=== PATIENT | female | born 1975 | race African-American/Black ===

== ENCOUNTER 2017-04-07 21:45 | Emergency (ER) | payer OTHER ==
[~2017-04-07] VITALS: Ht 160 cm; Wt 104.3 kg
[2017-04-07 22:00] VITALS: BP 114/75
[2017-04-07] MEDS ORDERED: Bacitracin Oint UD TOPIC ONE (22:15)
[2017-04-07] MEDS ORDERED: BACTRIM DS TAB1 EAC1 ORAL (22:38)
[2017-04-07] MEDS ORDERED: MUPIROCIN22 GM TOPIC (22:38)
--- NOTE | 2017-04-07 22:38 | Emergency Room Report ---
History of Present Illness General Chief Complaint: Pain Source: Patient Present Illness HPI Is a 42-year-old female who is left-hand dominant. She presents with swelling and pain to her right pinky finger. Onset today. Yesterday she noticed a small hangnail and she bit it. Tender to palpation. Localized to the radial aspect of the nail. I'll swelling but no drainage. No fever chills but no nausea vomiting. Allergies: Coded Allergies: No Known Allergies (Unverified , 04/07/17) Patient History Past Medical History: see triage record, old chart reviewed Past Surgical History: none Pertinent Family History: none Social History: Denies: smoking Last Menstrual Period: 03/30/17 Now: No : 4 Para: 3 Immunizations: other Reviewed Nursing Documentation: PMH: Agreed, PSxH: Agreed Nursing Documentation-PMH Past Medical History: No Stated History Review of Systems Eye: Denies: eye pain, blurred vision ENT: Denies: ear pain, nose congestion, throat swelling Respiratory: Denies: cough, shortness of breath Cardiovascular: Denies: chest pain, palpitations Gastrointestinal: Denies: abdominal pain, diarrhea, nausea, vomiting Musculoskeletal: Denies: back pain, joint pain Skin: Denies: rash Neurological: Denies: headache, numbness Endocrine: Denies: increased thirst, increased urine Hematologic/Lymphatic: Denies: easy bruising All Other Systems: negative except mentioned in HPI Physical Exam Vital Signs Date Time Temp Pulse Resp B/P (MAP) Pulse Ox O2 Delivery O2 Flow Rate FiO2 04/07/17 21:55 98.1 77 15 114/75 97 Room Air vitals normal Sp02 EP Interpretation: reviewed, normal General Appearance: well appearing, no apparent distress, alert Head: normocephalic, atraumatic Eyes: bilateral eye PERRL, bilateral eye EOMI ENT: hearing grossly normal, normal pharynx Neck: full range of motion, supple, no meningismus Respiratory: chest non-tender, lungs clear, normal breath sounds Cardiovascular #1: regular rate, rhythm, no murmur Gastrointestinal: normal bowel sounds, non tender, no mass, no organomegaly, no bruit, non-distended Musculoskeletal: back normal, gait/station normal, normal range of motion, other - Right finger: On the radial Aspect of the nail, there is some irritation and Edema. No abscess that can be I&D. Psychiatric: mood/affect normal Skin: warm/dry Medical Decision Making Diagnostic Impression: Primary Impression: Paronychia of finger of right hand ER Course Patient with a small paronychia. Too early to be I&D. We'll treat symptomatically with antibiotic ointment. We'll also write for antibiotics. no Evidence of felon. Last Vital Signs Date Time Temp Pulse Resp B/P (MAP) Pulse Ox O2 Delivery O2 Flow Rate FiO2 04/07/17 22:00 98.1 77 15 114/75 97 Room Air Status: improved Disposition: HOME, SELF-CARE Condition: Stable Scripts Mupirocin* (MUPIROCIN*) 22 Gm Oint...g. 1 APPLIC TOPIC THREE TIMES A DAY, #22 GM Prov: LILLIAM XIE M.D. 04/07/17 Trimethoprim/Sulfamethoxazole 160/800* (BACTRIM DS TABLET*) 1 Each Tablet 1 TAB ORAL Q12H, #14 TAB 0 Refills Prov: LILLIAM XIE M.D. 04/07/17 Additional Instructions: Keep wound clean. Use antibiotic at first. If not better in 2-3 days, fill prescription. LILLIAM XIE M.D. Apr 07, 2017 22:38
[2017-04-07 22:46] VITALS: BP 114/75
== END 2017-04-07 22:46 | disposition home or self-care (01) ==
LOC: EMR 22:10
DX: L03.011 Cellulitis of right finger (principal)
CPT/HCPCS: 99283

== ENCOUNTER 2018-04-11 06:22 | Emergency (ER) | payer OTHER ==
[~2018-04-11] VITALS: Ht 160 cm; Wt 102.5 kg
[~2018-04-11 06:22] MED LIST: BACTRIM DS TAB1 EAC1 ORAL; MUPIROCIN22 GM TOPIC
[2018-04-11 06:38] VITALS: BP_SYST 113; BP_SYST 99; BP_DIAS 67; BP_DIAS 78
--- NOTE | 2018-04-11 06:41 | NUR ---
ED Nurse Note: pt came to ed from home c/o sore throat 10/, cough, flu like symptoms x1 day. per pt she hasnt taken medication to help with symptoms
[2018-04-11] MEDS ORDERED: IBUPROFEN600 MG ORAL (06:53)
[2018-04-11] MEDS ORDERED: AUGMENTIN 875-1 EAC1 ORAL (06:53)
[2018-04-11 06:57] VITALS: BP 113/78
--- NOTE | 2018-04-11 06:57 | NUR ---
ED Nurse Note: pt dc per ermd order, pt is aox4, pt was given dc and prscription insctrutions, pt was able to verbalize understasnding, id band removed, pt is able to ambulate with steady gait, pt took all belongings when leaving ED.
--- NOTE | 2018-04-11 09:47 | Emergency Room Report ---
History of Present Illness General Chief Complaint: Flu Like Symptoms Source: Patient Present Illness HPI Patient presents with complaints of sore throat ear pain Bodyaches ongoing for the past several days Denies any chest pain or short of breath denies any vomiting or diarrhea Symptoms have worsened over the night and presents to the ER Denies any neck pain or photophobia denies any recent travel Sore throat is 5 out of 10 worse with swallowing Allergies: Coded Allergies: No Known Allergies (Unverified , 04/07/17) Patient History Past Medical History: see triage record Pertinent Family History: none Last Menstrual Period: 03/20/18 Now: No Reviewed Nursing Documentation: PMH: Agreed; PSxH: Agreed Nursing Documentation-PMH Past Medical History: No Stated History Review of Systems All Other Systems: negative except mentioned in HPI Physical Exam Vital Signs Date Time Temp Pulse Resp B/P (MAP) Pulse Ox O2 Delivery O2 Flow Rate FiO2 04/11/18 06:33 98.2 72 16 113/78 100 Room Air Sp02 EP Interpretation: reviewed, normal General Appearance: well appearing, no apparent distress Head: normocephalic, atraumatic Eyes: bilateral eye PERRL, bilateral eye EOMI ENT: hearing grossly normal, TMs + canals normal, uvula midline, pharyngeal erythema Neck: full range of motion, supple, no meningismus, no bony tend Respiratory: lungs clear, normal breath sounds, no rhonchi, no respiratory distress, no retraction, no accessory muscle use Cardiovascular #1: normal peripheral pulses, regular rate, rhythm, no edema, no gallop, no JVD, no murmur Gastrointestinal: normal bowel sounds, non tender, soft, no mass, no organomegaly, non-distended, no guarding, no hernia, no pulsatile mass, no rebound Genitourinary: no CVA tenderness Musculoskeletal: normal inspection Neurologic: oriented x3, responsive, flow coordinator III-XII nml as tested, motor strength/ tone normal, sensory intact Psychiatric: mood/affect normal Skin: normal color, no rash, warm/dry, palpation normal Lymphatic: normal inspection, no adenopathy Medical Decision Making Diagnostic Impression: Primary Impression: pharyngitis ER Course Patient's clinical history exam and findings are consistent with pharyngitis No findings to suggest peritonsillar or retropharyngeal abscess Patient will have initial conservative outpatient trial and return with any changes Last Vital Signs Date Time Temp Pulse Resp B/P (MAP) Pulse Ox O2 Delivery O2 Flow Rate FiO2 04/11/18 06:57 98.2 72 16 113/78 100 Room Air Status: unchanged Disposition: HOME, SELF-CARE Condition: Stable Scripts Amoxicillin/Potassium Clav 875-125* (AUGMENTIN 875-125 TABLET*) 1 Each Tablet 1 TAB ORAL TWICE A DAY, #14 TAB Prov: Chris Nichols DO 04/11/18 Ibuprofen* (MOTRIN*) 600 Mg Tablet 600 MG ORAL Q8H PRN for For Pain, #20 TAB 0 Refills Prov: Chris Nichols DO 04/11/18 Referrals: NON PHYSICIAN (PCP) Patient Instructions: Pharyngitis, [id number] Additional Instructions: Patient is provided with the discharge instructions notified to follow up with primary doctor in the next 2-3 days otherwise return to the er with any worsening symptoms. Please note that this report is being documented using shout[employer]ON technology. This can lead to erroneous entry secondary to incorrect interpretation by the dictating instrument. Chris Nichols DO Apr 11, 2018 09:47
== END 2018-04-11 07:00 | disposition home or self-care (01) ==
LOC: EMR 06:55
DX: J02.9 Acute pharyngitis, unspecified (principal)
CPT/HCPCS: 99282

== ENCOUNTER 2018-09-03 18:45 | Emergency (ER) | payer OTHER ==
[~2018-09-03] VITALS: Ht 160 cm; Wt 104.3 kg
[~2018-09-03 18:45] MED LIST changes: +AUGMENTIN 875-1 EAC1 ORAL; +IBUPROFEN600 MG ORAL
[2018-09-03] MEDS ORDERED: NAPROXEN500 M2 ORAL (20:17)
[2018-09-03] MEDS ORDERED: ACETAMINOPHEN-1 EAC1 ORAL (20:17)
--- NOTE | 2018-09-03 20:17 | Emergency Room Report ---
History of Present Illness General Chief Complaint: Lower Extremity Injury Source: Patient (Abril Francisco) Present Illness HPI 43-year-old female presents to the emergency department complaining of 9 out of 10 severity right knee pain with acute onset yesterday after hearing a loud pop noise when attempting to sit down onto the toilet. 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 Patient reports previous meniscal problems in the left knee which eventually required surgical interventions. Patient states that with attempts to bear weight she feels as though her leg is going to give out from underneath her. Denies erythema, warmth or bruising. Patient reports feeling sensation of swelling in her knee. No other Aggravating or relieving factors at this time. Denies numbness tingling or loss of sensation or gross motor movements of the extremities, incontinence of bowel or bladder. Denies CP, Palpitations, LOC, AMS , dizziness, Changes in Vision, weakness or a sudden severe headache. (Abril Francisco) Allergies: Coded Allergies: No Known Allergies (Unverified , 04/07/17) Patient History Past Medical History: see triage record Past Surgical History: none Pertinent Family History: none Last Menstrual Period: 08/29/18 Now: No Reviewed Nursing Documentation: PMH: Agreed; PSxH: Agreed (Abril Francisco) Nursing Documentation-PMH Past Medical History: No Stated History (Abril Francisco) Review of Systems All Other Systems: negative except mentioned in HPI (Abril Francisco) Physical Exam Vital Signs Date Time Temp Pulse Resp B/P (MAP) Pulse Ox O2 Delivery O2 Flow Rate FiO2 09/03/18 18:52 98.1 76 18 139/90 (106) 97 Room Air Sp02 EP Interpretation: reviewed, normal General Appearance: no apparent distress, alert, GCS 15, non-toxic, obese Head: normocephalic, atraumatic Eyes: bilateral eye normal inspection, bilateral eye PERRL ENT: hearing grossly normal, normal voice Neck: full range of motion Respiratory: chest non-tender, lungs clear, normal breath sounds, speaking full sentences Cardiovascular #1: regular rate, rhythm, normal capillary refill Cardiovascular #2: 3+ dorsalis pedis (R) - post. tib. Gastrointestinal: normal bowel sounds, non tender, soft Musculoskeletal: back normal, gait/station normal - compensatory, normal range of motion, other - No increased laxity upon varus or valgus stressing of the right knee, negative anterior and posterior drawer signs. TTP anteriorly, no swelling. Pain when pt. bears weight. Neurologic: alert, oriented x3, responsive, motor strength/tone normal, sensory intact, speech normal, grossly normal Psychiatric: judgement/insight normal Skin: normal color (Abril Francisco) Medical Decision Making PA Attestation Dr. Jang is my supervising Physician whom patient management has been discussed with. (Abril Francisco) Diagnostic Impression: Primary Impression: Knee pain, acute Qualified Codes: M25.561 - Pain in right knee ER Course 43-year-old female presents to the emergency department complaining of 9 out of 10 severity right knee pain with acute onset yesterday after hearing a loud pop noise when attempting to sit down onto the toilet. 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 Patient reports previous meniscal problems in the left knee which eventually required surgical interventions. Patient states that with attempts to bear weight she feels as though her leg is going to give out from underneath her. Denies erythema, warmth or bruising. Patient reports feeling sensation of swelling in her knee. No other Aggravating or relieving factors at this time. Denies numbness tingling or loss of sensation or gross motor movements of the extremities, incontinence of bowel or bladder. Denies CP, Palpitations, LOC, AMS , dizziness, Changes in Vision, weakness or a sudden severe headache. Ddx considered but are not limited to Fracture, dislocation, contusion, Sprain/ Strain/Spasm, meniscal injury, Septic Joint, or Arthritis just to name a few Vital signs: are WNL, pt. is afebrile H&PE are most consistent with musculoskeletal injury will perform imaging to r/ o fractures/dislocations.- No increased laxity on exam. ORDERS: - X-ray Right Knee 3 views - negative for fx, Dislocation, or significant soft tissue injury, per preliminary read in ED, and signed by DAVY Francisco , my supervising physician has reviewed, and agrees with my interpretation. ED INTERVENTIONS: --Knee Immobilizer splint applied to the Right Knee by [employer]fd[employer] technical architect. Pt. remains neurovascularly intact. --Patient is provided with crutches and instructed on their use DISCHARGE: At this time pt. is stable for d/c to home. Will provide printed patient care instructions, and any necessary prescriptions. Care plan and follow up instructions have been discussed with the patient prior to discharge. (Abril Francisco) Other X-Ray Diagnostic Results Other X-Ray Diagnostic Results : X-Ray ordered: Right Knee # of Views/Limited Vs Complete: 3 View Indication: Pain EP Interpretation: Yes PA Xray: Interpretation reviewed, by supervising MD, and agrees with findings. Interpretation: no dislocation, no soft tissue swelling, no fractures Impression: No acute disease Electronically Signed by: Abril Francisco PA-C (Abril Francisco) Other X-Ray Diagnostic Results : Electronically Signed by: Josie Kaur documentation of Xray reviewed by me and is accurate, George Jang MD (George Jang MD) Last Vital Signs Date Time Temp Pulse Resp B/P (MAP) Pulse Ox O2 Delivery O2 Flow Rate FiO2 09/03/18 18:52 98.1 76 18 139/90 (106) 97 Room Air (Abril Francisco) Disposition: HOME, SELF-CARE Condition: Stable Scripts Naproxen* (NAPROXEN*) 500 Mg Tablet 500 MG ORAL TWICE A DAY, #14 TAB Prov: Abril Francisco 09/03/18 Acetaminophen With Codeine (T#3) (TYLENOL #3 TAB*) Y Tab 1 TAB ORAL Q6HR PRN for For Pain, #5 TAB Prov: Abril Francisco 09/03/18 Patient Instructions: Knee Pain Additional Instructions: Take medications as directed. Follow up with an [facility] in 3-5 days, even if your symptoms have resolved. If symptoms persist MRI may be required at the discretion of your PCP or Ortho Specialist. --Please review list of primary care clinics, if you do not already have a primary care provider who can give you an Orthopedic Referral. Return sooner to ED if new symptoms occur, or current symptoms become worse. Do not drink alcohol, drive, or operate heavy machinery while taking Tylenol # 3 as this may cause drowsiness. - Please note that this Emergency Department Report was dictated using [employer] painter technology software, occasionally this can lead to erroneous entry secondary to interpretation by the dictation equipment. Abril Francisco Sep 03, 2018 20:17 George Jang MD Sep 04, 2018 05:41
[2018-09-03 20:27] VITALS: BP 130/82
--- NOTE | 2018-09-04 12:48 | Diagnostic Imaging Report ---
Indication: Pain Knee pain/trauma 3 views of the right knee were obtained. Findings: There is evidence of a small corticated ossicle adjacent to the medial tibial spine on the frontal projection of the knee. The ossific focus is not appreciated well on the other views. This may reflect an old injury of the medial tibial spine, degenerative osteophyte formation or possibly a small loose body. Consider further evaluation with MRI for better assessment. There is no acute fracture identified. There is no malalignment or obvious joint effusion. IMPRESSION: Small central ossicle noted. Consider evaluation with MRI. Discussion as above
== END 2018-09-03 22:25 | disposition home or self-care (01) ==
LOC: EMR 20:30
DX: M25.561 Pain in right knee (principal); E66.9 Obesity, unspecified
CPT/HCPCS: 29505; 99283

== ENCOUNTER 2018-10-04 13:39 | Emergency (ER) | payer OTHER ==
[~2018-10-04] VITALS: Ht 160 cm; Wt 107.0 kg
[~2018-10-04 13:39] MED LIST changes: +ACETAMINOPHEN-1 EAC1 ORAL; +NAPROXEN500 M2 ORAL
[2018-10-04] MEDS ORDERED: NKM (13:46)
--- NOTE | 2018-10-04 13:52 | NUR ---
ED Nurse Note: Pt frokm home came in due to right thumb swelling after needle puncture last sunday. Unable ot recall if she had Tetanus Shor before. AAO x4, ambulatory. Noted right thumb swelling with betadine.
[2018-10-04] MEDS ORDERED: Tetanus/Diptheria/Pertussis IM ONE (14:00)
--- NOTE | 2018-10-04 14:36 | Emergency Room Report ---
History of Present Illness General Chief Complaint: Upper Extremity Injury Source: Patient Present Illness HPI 43-year-old female presents to the emergency department complaining of 7 out of 10 severity localized pain underneath the distal aspect of the nail of the right thumb x3 days status post accidentally poking herself with sewing needle. Patient denies bleeding at this time she reports progressive swelling in the distal aspect of her right thumb. Patient states she is right-hand dominant she is not sure when her last tetanus vaccination was. Patient denies taking blood thinning medications or having history of immune compromise. Patient denies taking any fceq-ktc-[id number] medications to relieve her symptoms. Patient denies fevers, chills or seizures. Patient reports acute onset of discharge from under the nail starting this morning. No other aggravating or relieving factors at this time. Allergies: Coded Allergies: No Known Allergies (Unverified , 04/07/17) Patient History Past Medical History: see triage record Past Surgical History: none Pertinent Family History: none Last Menstrual Period: 09/30/18 Now: No Reviewed Nursing Documentation: PMH: Agreed; PSxH: Agreed Nursing Documentation-PMH Past Medical History: No Stated History Review of Systems All Other Systems: negative except mentioned in HPI Physical Exam Vital Signs Date Time Temp Pulse Resp B/P (MAP) Pulse Ox O2 Delivery O2 Flow Rate FiO2 10/04/18 13:42 98.1 70 16 118/73 (88) 98 Room Air Sp02 EP Interpretation: reviewed, normal General Appearance: no apparent distress, alert, GCS 15, non-toxic Head: normocephalic, atraumatic Eyes: bilateral eye normal inspection, bilateral eye PERRL ENT: hearing grossly normal, normal voice Neck: full range of motion Respiratory: lungs clear, normal breath sounds, speaking full sentences Cardiovascular #1: regular rate, rhythm, normal capillary refill Musculoskeletal: back normal, gait/station normal, normal range of motion, non- tender Neurologic: alert, oriented x3, responsive, motor strength/tone normal, sensory intact, speech normal, grossly normal Psychiatric: judgement/insight normal Skin: other - erythema to the tip of the distal tip of the right thumb with small area of oncholysis of the distal nail in a linear fashion, no palpable fluctuance, no swelling or fluctuance of the nail fold or cuticle line. FROM, no ttp to the finger pad, no swelling or erythema of the finger pad, no bleeding at this time. Medical Decision Making PA Attestation Dr. Padilla is my supervising Physician whom patient management has been discussed with. Diagnostic Impression: Primary Impression: Cellulitis, finger Qualified Codes: L03.011 - Cellulitis of right finger Additional Impression: Puncture wound ER Course 43-year-old female presents to the emergency department complaining of 7 out of 10 severity localized pain underneath the distal aspect of the nail of the right thumb x3 days status post accidentally poking herself with sewing needle. Patient denies bleeding at this time she reports progressive swelling in the distal aspect of her right thumb. Patient states she is right-hand dominant she is not sure when her last tetanus vaccination was. Patient denies taking blood thinning medications or having history of immune compromise. Patient denies taking any upky-lhn-bajbxni medications to relieve her symptoms. Patient denies fevers, chills or seizures. Patient reports acute onset of discharge from under the nail starting this morning. No other aggravating or relieving factors at this time. Ddx considered but are not limited to cellulitis, paronychia, eponychia, ingrown toe nail, fracture, d/L, gout Vital signs: are WNL, pt. is afebrile H&PE are most consistent with Right Middle finger nail infection/ cellulitis- no fluctuance----- erythema to the tip of the distal tip of the right thumb with small area of oncholysis of the distal nail in a linear fashion, no palpable fluctuance, no swelling or fluctuance of the nail fold or cuticle line. FROM, no ttp to the finger pad, no swelling or erythema of the finger pad , no bleeding at this time. ORDERS: none required at this time, the diagnosis is clinical ED INTERVENTIONS: -Tdap vaccination administered. - will d/c pt. with PO abx. -I do not identify an emergent condition at this time. With current presentation , pt. is stable for close outpatient follow up and conservative treatment. D/ w pt. to return promptly to ED with worsening or new symptoms.- Pt. verbalizes' understanding and agreement with proposed treatment plan.proposed treatment plan. DISCHARGE: At this time pt. is stable for d/c to home. Will provide printed patient care instructions, and any necessary prescriptions. Care plan and follow up instructions have been discussed with the patient prior to discharge. Last Vital Signs Date Time Temp Pulse Resp B/P (MAP) Pulse Ox O2 Delivery O2 Flow Rate FiO2 10/04/18 13:42 98.1 70 16 118/73 (88) 98 Room Air Disposition: HOME, SELF-CARE Condition: Stable Scripts Mupirocin* (MUPIROCIN*) 22 Gm Oint...g. 1 APPLIC TOPIC THREE TIMES A DAY, #22 GM Prov: Abril Francisco 10/04/18 Ibuprofen* (MOTRIN*) 600 Mg Tablet 600 MG ORAL THREE TIMES A DAY, #30 TAB 0 Refills Prov: Abril Francisco 10/04/18 Clindamycin Hcl (CLINDAMYCIN HCL) 300 Mg Capsule 300 MG ORAL FOUR TIMES A DAY for 7 Days, #28 CAP Prov: Abril Francisco 10/04/18 Patient Instructions: Cellulitis, Kzlw-es-Peyq, Paronychia, [id number] Additional Instructions: Take medications as directed. --Warm water soaks up to 8x a day. Follow up with a Primary Care Provider in 3-5 days, even if your symptoms have resolved. --Please review list of primary care clinics, if you do not already have a primary care provider Return sooner to ED if new symptoms occur, or current symptoms become worse. - Please note that this Emergency Department Report was dictated using [employer] loader technology software, occasionally this can lead to erroneous entry secondary to interpretation by the dictation equipment. Abril Francisco Oct 04, 2018 14:36
[2018-10-04] MEDS ORDERED: CLINDAMYCIN HC300 MG ORAL (14:38)
[2018-10-04] MEDS ORDERED: IBUPROFEN600 MG ORAL (14:38)
[2018-10-04] MEDS ORDERED: MUPIROCIN22 GM TOPIC (14:38)
[2018-10-04 15:00] VITALS: BP 118/73
--- NOTE | 2018-10-04 15:00 | NUR ---
ER DISCHARGE NOTE: Patient is cleared to be discharged per ERMD, pt is aox4, on room air, with stable vital signs. pt was given dc and prescription instructions, pt was able to verbalize understanding, pt id band removed. pt is able to ambulate with steady gait. pt took all belongings.
== END 2018-10-04 15:00 | disposition home or self-care (01) ==
LOC: EMR 14:31
DX: L03.011 Cellulitis of right finger (principal); S61.031A Puncture wound without foreign body of right thumb without damage to nail, initial encounter; W26.8XXA Contact with other sharp object(s), not elsewhere classified, initial encounter; Y92.9 Unspecified place or not applicable; Z23 Encounter for immunization
CPT/HCPCS: 90471; 90715; 96372; 99283

== ENCOUNTER 2018-11-02 23:05 | Emergency (ER) | payer OTHER ==
[~2018-11-02] VITALS: Ht 160 cm; Wt 108.9 kg
[~2018-11-02 23:05] MED LIST changes: +CLINDAMYCIN HC300 MG ORAL; +NKM
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
[2018-11-02 23:13] VITALS: BP 114/72
[2018-11-02] MEDS ORDERED: Isovue-300 100ml vial INJ PRN (23:30)
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
[2018-11-02 23:57] LABS: HEMATOCRIT 33.9 % (37.0-47.0); HEMOGLOBIN 11.3 G/DL (12.0-16.0); LYMPHOCYTES % (AUTO) 31.9 % (20.0-45.0); MEAN CORPUSCULAR VOLUME 87 FL (80-99); MONOCYTES % (AUTO) 8.5 % (1.0-10.0); NEUTROPHILS % (AUTO) 57.5 % (45.0-75.0); PLATELET COUNT 328 K/UL (150-450); RED BLOOD COUNT 3.91 M/UL (4.20-5.40); RED CELL DISTRIBUTION WIDTH 13.1 % (11.6-14.8)
[2018-11-03 00:52] LABS: ANION GAP 9 mmol/L (5-15); BLOOD UREA NITROGEN 13 mg/dL (7-18); CALCIUM 9.2 MG/DL (8.5-10.1); CARBON DIOXIDE 26 MMOL/L (21-32); CHLORIDE 108 MMOL/L (98-107); POTASSIUM 3.8 MMOL/L (3.5-5.1); SODIUM 142 MMOL/L (136-145)
[2018-11-03 00:56] LABS: ALANINE AMINOTRANSFERASE 19 U/L (12-78); ALBUMIN 3.3 G/DL (3.4-5.0); ALBUMIN/GLOBULIN RATIO 0.8 (1.0-2.7); ALKALINE PHOSPHATASE 69 U/L (46-116); ASPARTATE AMINO TRANSFERASE 23 U/L (15-37); BILIRUBIN,TOTAL 0.4 MG/DL (0.2-1.0)
--- NOTE | 2018-11-03 00:59 | NUR ---
ED Nurse Note: called radiology for CT
--- NOTE | 2018-11-03 01:11 | NUR ---
ED Nurse Note: pt off to CT.
--- NOTE | 2018-11-03 01:26 | NUR ---
ED Nurse Note: pt back from CT, resting will cont monitor, spouse at the bedside.
[2018-11-03] MEDS ORDERED: IBUPROFEN600 MG ORAL (02:47)
[2018-11-03] MEDS ORDERED: TYLENOL EXTRA500 MG ORAL (02:47)
--- NOTE | 2018-11-03 03:04 | NUR ---
ED Nurse Note: pt cleared to be d/c per ERMD, pt discharge and aftercare instruction provided w/ prescription, pt education done via discussion and handout, pt verbalized understanding and agrees with plan, vss, ambulatory w/ steady gait, pt accompanied by . left w/ all belongings.
[2018-11-03 03:05] VITALS: BP 109/60
--- NOTE | 2018-11-03 03:05 | NUR ---
ED Nurse Note: iv d/c and id band removed.
--- NOTE | 2018-11-03 06:47 | Diagnostic Imaging Report ---
EXAM: XR Right Knee, 3 views CLINICAL HISTORY: PAIN TECHNIQUE: Three views of the right knee. COMPARISON: None available FINDINGS: Bones/joints: No evidence of acute fracture or dislocation. No knee joint effusion identified. Soft tissues: Mild streakiness edematous changes identified along the anterior knee infrapatellar region and anterior proximal calf. Small nodular soft tissue calcific density along the pretibial soft tissues at level of upper calf. IMPRESSION: No evidence of acute fracture or dislocation. Soft tissue findings as described in body of report.
--- NOTE | 2018-11-03 06:56 | Diagnostic Imaging Report ---
EXAM: XR Left Wrist Complete, 3 or More Views CLINICAL HISTORY: PAIN TECHNIQUE: Frontal, lateral and oblique views of the left wrist. COMPARISON: None available FINDINGS: Bones/joints: No evidence of acute fracture or dislocation. No significant arthritic changes. Soft tissues: No radiopaque foreign bodies. IMPRESSION: No evidence of acute fracture or dislocation.
== END 2018-11-03 03:05 | disposition home or self-care (01) ==
LOC: EMR 23:33
DX: S20.219A Contusion of unspecified front wall of thorax, initial encounter (principal); S60.212A Contusion of left wrist, initial encounter; S80.01XA Contusion of right knee, initial encounter; J98.59 Other diseases of mediastinum, not elsewhere classified; R10.9 Unspecified abdominal pain; V63.5XXA Driver of heavy transport vehicle injured in collision with car, pick-up truck or van in traffic accident, initial encounter; Y92.410 Unspecified street and highway as the place of occurrence of the external cause
CPT/HCPCS: 36415; 71260; 73100; 73562; 74177; 80053; 84484; 85025; 99284; Q9967